=== PATIENT | male | born 1990 | race Caucasian/White ===

== ENCOUNTER 2017-05-30 21:00 | Emergency (ER) | payer OTHER ==
[2017-05-30 21:13] VITALS: BP 143/93
[2017-05-30] MEDS ORDERED: Lidocaine 1% 50 ML MDV INJECT ONE (21:27)
--- NOTE | 2017-05-30 21:43 | EDM.PDOC ---
ED HPI GENERAL MEDICAL PROBLEM - General Chief Complaint: Laceration Stated Complaint: CUT RIGHT MIDDLE FINGER Time Seen by Provider: 05/30/17 21:25 Source of Information: Reports: Patient History Limitations: Reports: No Limitations - History of Present Illness INITIAL COMMENTS - FREE TEXT/NARRATIVE: 27-year-old male presents for evaluation and treatment of a laceration. Patient reports that he was pumping up a bicycle with a pump. He states that the pump came undone and he did not realizes he then jammed the edge of the pump into his finger causing a laceration. Occurred about 1 hour prior to arrival. Laceration is located near the right hand third finger dorsal DIP joint. He reports some numbness and tingling. Last tetanus was about 3 years ago. Patient is right-handed. Onset: Today Location: Reports: Upper Extremity, Right Right 3-Middle finger Pain Score (Numeric/FACES): 1 - Related Data Allergies Allergy/AdvReac Type Severity Reaction Status Date / Time No Known Allergies Allergy Verified 09/10/15 18:06 Home Meds: Home Meds Acetaminophen/oxyCODONE [Percocet 325-5 MG] 1 tab PO Q6H PRN #15 tablet [Rx] Cephalexin 500 mg PO TID #10 capsule 05/30/17 [Rx] Past Medical History - Past Health History Medical/Surgical History: Denies Medical/Surgical History Respiratory History: Reports: Asthma Musculoskeletal History: Reports: Fracture Neurological History: Reports: Concussion Social & Family History - Family History Family Medical History: Noncontributory - Tobacco Use Smoking Status *Q: Never Smoker - Caffeine Use Caffeine Use: Reports: Coffee, Energy Drinks, Soda, Tea - Recreational Drug Use Recreational Drug Use: No ED ROS GENERAL - Review of Systems Review Of Systems: See Below Musculoskeletal: Reports: Hand Pain (pain with ROM) Skin: Reports: Wound (right hand over DIP joint 3 finger) Neurological: Reports: Numbness (right hand 3rd finger), Tingling (right hand 3rd finger) ED EXAM, SKIN/RASH Exam: See Below Exam Limited By: No Limitations General Appearance: Alert, WD/WN, No Apparent Distress, Anxious Eye Exam: Bilateral Eye: Conjunctival Injection Respiratory/Chest: No Respiratory Distress Cardiovascular: Normal Peripheral Pulses, Regular Rate, Rhythm Peripheral Pulses: 2+: Radial (L), Radial (R) Extremities: Normal Range of Motion (able to make a fist, flex, extend, adduct and abduct right hand 3rd finger both with and without resistance) Neurological: Alert, Oriented, Normal Cognition Psychiatric: Normal Affect, Normal Mood Skin: Warm, Dry, Other (3cm laceration to the right hand 3rd finger over the PIP joint dorsal lateral side) Location, Skin: Upper Extremity, Right ED SKIN PROCEDURES - Laceration/Wound Repair Right Distal Dorsal Finger Lac/Wound length In cm: 3 Appearance: Subcutaneous, Irregular, Mildly Contaminated Distal NVT: Neuro & Vascular Intact, No Tendon Injury Anesthetic Type: Local Local Anesthesia - Lidocaine (Xylocaine): 1% Plain Local Anesthetic Volume: 2cc Skin Prep: Saline, Sterile Drape, Other (kerraclens; soaked in sterile saline and kerraclens then irrigated with about 400cc of sterile saline) Exploration/Debridement/Repair: Wound Explored, Other (bone fragement found) Closed with: Sutures Suture Size: 4-0 # of Sutures: 9 Suture Type: Silk, Interrupted, Simple Sterile Dressing Applied: Nurse Tetanus Status Addressed: Yes Complications: No Course - Vital Signs Last Recorded V/S: Last Vital Signs Temp 35.8 C 05/30/17 21:12 Pulse 69 05/30/17 21:12 Resp 29 H 05/30/17 21:12 BP 143/93 H 05/30/17 21:12 Pulse Ox 99 05/30/17 21:12 - Orders/Labs/Meds Orders: Active Orders 24 hr Category Date Time Status Peripheral IV Care [RC] . DIRECTED Care 05/30/17 22:53 Ordered Fingers Third Digit Rt F7 [CR] Stat Exams 05/30/17 22:08 Taken Sodium Chloride 0.9% [Saline Flush] Med 05/30/17 22:53 Ordered 10 ml FLUSH ASDIRECTED PRN ceFAZolin [Ancef] 1 gm Med 05/30/17 22:53 Ordered Premix Bag 1 bag IV ONETIME Peripheral IV Insertion Adult [OM.PC] Routine Oth 05/30/17 22:53 Ordered Medication Orders Cefazolin Sodium/Dextrose 1 gm (/ Premix) 50 mls @ 100 mls/hr IV ONETIME ONE Stop: 05/30/17 23:22 Sodium Chloride (Saline Flush) 10 ml FLUSH ASDIRECTED PRN PRN Reason: Keep Vein Open Meds: Medications Generic Name Dose Route Start Last Admin Trade Name Freq PRN Reason Stop Dose Admin Cefazolin Sodium/Dextrose 1 gm 50 mls @ 100 mls/hr 05/30/17 22:53 / Premix IV 05/30/17 23:22 ONETIME ONE Sodium Chloride 10 ml 05/30/17 22:53 Saline Flush FLUSH ASDIRECTED PRN Keep Vein Open Discontinued Medications Generic Name Dose Route Start Last Admin Trade Name Freq PRN Reason Stop Dose Admin Hydromorphone HCl 0.5 mg 05/30/17 23:06 Dilaudid IVPUSH 05/30/17 23:07 ONETIME ONE Lidocaine HCl 50 ml 05/30/17 21:27 05/30/17 21:35 Xylocaine 1% INJECT 05/30/17 21:28 50 ml ONETIME ONE Administration - Radiology Interpretation Free Text/Narrative:: xray of the right hand 3rd finger shows a small chip fracture off the middle distal phalnex - Re-Assessments/Exams Free Text/Narrative Re-Assessment/Exam: 05/30/17 22:12 While suturing, I encountered a hard substance. Decided to suspend suturing and obtain an xray to rule out fracture. 05/30/17 22:56 Reviewed xray results with the patient. 05/30/17 23:[address] Jerman Constantino, content engineer for hand surgery at [facility], recommended IV antibiotics, thorough irrigation and oral antibiotics. Did not feel the need for a washout. Suturing was resumed. I placed an additional 4 sutures in the laceration for 9 sutures total. Patient to recieve 1 gram IV ancef. Will place on cephalexin outpatient. Will discharge home. Discharge instructions as documented. Departure - Departure Time of Disposition: 23:42 Disposition: Home, Self-Care 01 Condition: Fair Clinical Impression: Laceration, Fracture of finger, middle phalanx, right, open - Discharge Information Prescriptions: Acetaminophen/oxyCODONE [Percocet 325-5 MG] 1 tab PO Q6H PRN #15 tablet PRN Reason: Pain Cephalexin 500 mg PO TID #10 capsule Referrals: PCP,None [Primary Care Provider] - Marquis Perales DO [Physician] - Forms: ED Department Discharge Additional Instructions: You were given medication in the ER that can affect your ability to drive and operate machinery. Do not drive or operate machinery within 12 hours of taking prescription narcotic pain medication. Wash the wound with gentle soap and water twice a day. Keep the wound covered. Wear splint at all times. Percocet 1 tab PO every 4-6 hours prn pain. Do not drive or operate machinery within 12 hours of taking the percocet. Percocet can be habit forming, I recommend you take as few of these as needed to control your pain. Take antibiotics as prescribed. 1 tab PO tid x 10 days. Recommend you take these with food. May start this antibiotic tomorrow. Monitor for signs of infection such as increased swelling, pus or erythema. Present clinic or the ER should these develop. Follow up with orthopedics this week. May see Dr. Perales at [facility]. Clear [phone] Pearles. Please return to the ER if symptoms change or worsen. - My Orders Last 24 Hours: My Active Orders 05/30/17 22:08 Fingers Third Digit Rt F7 [CR] Stat 05/30/17 22:53 Peripheral IV Care [RC] . DIRECTED Sodium Chloride 0.9% [Saline Flush] 10 ml FLUSH ASDIRECTED PRN ceFAZolin [Ancef] 1 gm Premix Bag 1 bag IV ONETIME Peripheral IV Insertion Adult [OM.PC] Routine - Assessment/Plan Last 24 Hours: My Active Orders 05/30/17 22:08 Fingers Third Digit Rt F7 [CR] Stat 05/30/17 22:53 Peripheral IV Care [RC] . DIRECTED Sodium Chloride 0.9% [Saline Flush] 10 ml FLUSH ASDIRECTED PRN ceFAZolin [Ancef] 1 gm Premix Bag 1 bag IV ONETIME Peripheral IV Insertion Adult [OM.PC] Routine
[2017-05-30] MEDS ORDERED: ceFAZolin 1 GM in Premix Bag 1 BAG IV ONE (22:53)
[2017-05-30] MEDS ORDERED: Sodium Chloride 0.9% 10 ML Syringe FLUSH PRN (22:53)
[2017-05-30] MEDS ORDERED: Acetaminophen/oxyCODONE 325-5 MG Tab PO ONE (22:57)
[2017-05-30] MEDS ORDERED: HYDROmorphone 0.5 MG/0.5 ML Syringe IVPUSH ONE (23:06)
[2017-05-30] MEDS ORDERED: HYDROmorphone 0.5 MG/0.5 ML Syringe ONE (23:08)
--- NOTE | 2017-05-31 11:49 | CR ---
Right third finger: Four views centered to the right third finger were obtained. Soft tissue injury is identified. Opacities are seen within the soft tissues presumably due to foreign body. No acute fracture, dislocation or other bony abnormality is seen. Impression: 1. Soft tissue injury. Presumed soft tissue foreign bodies. 2. No acute bony abnormality is seen. Diagnostic code #3
== END 2017-05-31 | disposition home or self-care (01) ==
LOC: JD.ED 21:00
DX: S62.632B Displaced fracture of distal phalanx of right middle finger, initial encounter for open fracture (principal); J45.909 Unspecified asthma, uncomplicated; W23.0XXA Caught, crushed, jammed, or pinched between moving objects, initial encounter
CPT/HCPCS: 12002; 73140; 96365; 96375; 99283; J0690; J1170; J7050; 99284-25

== ENCOUNTER 2019-01-04 21:50 | Emergency (ER) | payer OTHER ==
[2019-01-04 22:21] VITALS: BP 137/94
[2019-01-04] MEDS ORDERED: Ondansetron 4 MG/2 ML SDV IVPUSH ONE (22:33)
[2019-01-04] MEDS ORDERED: Sodium Chloride 0.9% 10 ML Syringe FLUSH PRN (22:33)
[2019-01-04] MEDS ORDERED: Sodium Chloride 0.9% 1,000 ML IV STA (22:33)
--- NOTE | 2019-01-04 22:42 | EDM.PDOC ---
ED HPI GENERAL MEDICAL PROBLEM - General Chief Complaint: Neurological Problem Stated Complaint: DIZZY, SOB POSSIBLE FOOD POSIONING Time Seen by Provider: 01/04/19 22:23 Source of Information: Reports: Patient History Limitations: Reports: No Limitations - History of Present Illness INITIAL COMMENTS - FREE TEXT/NARRATIVE: The patient presents with dizziness, stomach cramps and shortness of breath. He says earlier today at 11am he had some soup and it tasted sour. He did not think much of it until tonight. He had some dizziness when moving his head. He had stomach cramps and the urge to have a BM but no BM or diarrhea. He may have a little nausea but no vomiting. He had a headache but he took motrin and that is better. He has no fever, chills, cough, congestion, or runny nose. He had some dysuria. He has no medical problems. He has no chest pain. He did notice when he went up stairs tonight he had some shortness of breath. Onset: Gradual Duration: Hour(s): Location: Reports: Abdomen Quality: Reports: Ache (cramping) Severity: Mild Improves with: Reports: None Worsens with: Reports: None Associated Symptoms: Reports: Headaches, Nausea/Vomiting, Shortness of Breath. Denies: Chest Pain, Cough, Fever/Chills Headache Pain Score (Numeric/FACES): 3 - Related Data Allergies Allergy/AdvReac Type Severity Reaction Status Date / Time No Known Allergies Allergy Verified 09/10/15 18:06 Home Meds: Home Meds Ondansetron [Zofran ODT] 4 mg PO Q6H PRN #20 tab.dis 01/05/19 [Rx] Past Medical History - Past Health History Medical/Surgical History: Denies Medical/Surgical History Respiratory History: Reports: Asthma Musculoskeletal History: Reports: Fracture Neurological History: Reports: Concussion Social & Family History - Family History Family Medical History: Noncontributory - Tobacco Use Smoking Status *Q: Never Smoker - Caffeine Use Caffeine Use: Reports: Coffee, Energy Drinks - Recreational Drug Use Recreational Drug Use: No ED ROS GENERAL - Review of Systems Review Of Systems: See Below Constitutional: Reports: No Symptoms HEENT: Reports: No Symptoms Respiratory: Reports: Shortness of Breath. Denies: Cough Cardiovascular: Reports: No Symptoms Endocrine: Reports: No Symptoms GI/Abdominal: Reports: Abdominal Pain, Nausea. Denies: Diarrhea, Vomiting : Reports: Dysuria Musculoskeletal: Reports: No Symptoms Skin: Reports: No Symptoms ED EXAM, NEURO - Physical Exam Exam: See Below Exam Limited By: No Limitations General Appearance: Alert, No Apparent Distress Ears: Normal External Exam Nose: Normal Inspection Head Exam: Atraumatic, Normocephalic Neck: Normal Inspection Respiratory/Chest: No Respiratory Distress, Lungs Clear, Normal Breath Sounds Cardiovascular: Regular Rate, Rhythm, No Edema, No Murmur GI/Abdominal: Soft, Non-Tender, No Organomegaly, No Mass Neurological: Alert, No Motor/Sensory Deficits, Oriented x 3 Course - Vital Signs Last Recorded V/S: Last Vital Signs Temp 98.6 F 01/04/19 22: Pulse 63 01/04/19 22:19 Resp 20 01/04/19 22:19 BP 137/94 H 01/04/19 22:19 Pulse Ox 98 01/04/19 22:19 - Orders/Labs/Meds Orders: Active Orders 24 hr Category Date Time Status Peripheral IV Care [RC] . DIRECTED Care 01/04/19 22:33 Active Sodium Chloride 0.9% [Saline Flush] Med 01/04/19 22:33 Active 10 ml FLUSH ASDIRECTED PRN ED Antiemetic Medication Reflex [OM.PC] Stat Oth 01/04/19 22:33 Ordered Peripheral IV Insertion Adult [OM.PC] Stat Oth 01/04/19 22:33 Ordered Medication Orders Sodium Chloride (Saline Flush) 10 ml FLUSH ASDIRECTED PRN PRN Reason: Keep Vein Open Last Admin: 01/04/19 23:15 Dose: 10 ml Labs: Laboratory Tests 01/04/19 01/04/19 01/04/19 Range/Units 23:20 23:20 23:28 WBC 8.64 (4.23-9.07) K/mm3 RBC 5.17 (4.63-6.08) M/mm3 Hgb 15.3 (13.7-17.5) gm/L Hct 43.2 (40.1-51.0) % MCV 83.6 (79.0-92.2) fl MCH 29.6 (25.7-32.2) pg MCHC 35.4 (32.2-35.5) g/dl RDW Std Deviation 37.4 (35.1-43.9) fL Plt Count 220 (163-337) K/mm3 MPV 10.6 (9.4-12.3) fl Neut % (Auto) 51.4 (34.0-67.9) % Lymph % (Auto) 34.6 (21.8-53.1) % Chaves % (Auto) 7.3 (5.3-12.2) % Eos % (Auto) 5.9 (0.8-7.0) Baso % (Auto) 0.6 (0.1-1.2) % Neut # (Auto) 4.44 (1.78-5.38) K/mm3 Lymph # (Auto) 2.99 (1.32-3.57) K/mm3 Chaves # (Auto) 0.63 (0.30-0.82) K/mm3 Eos # (Auto) 0.51 (0.04-0.54) K/mm3 Baso # (Auto) 0.05 (0.01-0.08) K/mm3 Sodium 140 (136-145) mEq/L Potassium 4.0 (3.5-5.1) mEq/L Chloride 104 (98-107) mEq/L Carbon Dioxide 28 (21-32) mEq/L Anion Gap 12.0 (5-15) BUN 20 H (7-18) mg/dL Creatinine 1.3 (0.7-1.3) mg/dL Est Cr Clr Drug Dosing 92.03 mL/min Estimated GFR (MDRD) > 60 (>60) mL/min BUN/Creatinine Ratio 15.4 (14-18) Glucose 102 (74-106) mg/dL Calcium 9.2 (8.5-10.1) mg/dL Total Bilirubin 0.4 (0.2-1.0) mg/dL AST 14 L (15-37) U/L ALT 37 (16-63) U/L Alkaline Phosphatase 86 (46-116) U/L Total Protein 7.2 (6.4-8.2) g/dl Albumin 3.9 (3.4-5.0) g/dl Globulin 3.3 gm/dL Albumin/Globulin Ratio 1.2 (1-2) Lipase 151 (73-393) U/L Urine Color Yellow (Yellow) Urine Appearance Clear (Clear) Urine pH 6.0 (5.0-8.0) Ur Specific Hunters 1.025 (1.005-1.030) Urine Protein Negative (Negative) Urine Glucose (UA) Negative (Negative) Urine Ketones Trace H (Negative) Urine Occult Blood Negative (Negative) Urine Nitrite Negative (Negative) Urine Bilirubin Negative (Negative) Urine Urobilinogen 0.2 (0.2-1.0) Ur Leukocyte Esterase Negative (Negative) Urine RBC 0-5 (0-5) /hpf Urine WBC 0-5 (0-5) /hpf Ur Epithelial Cells 0-5 (0-5) /hpf Urine Bacteria Not seen (FEW) /hpf Urine Mucus Not seen (FEW) /hpf Meds: Medications Generic Name Dose Route Start Last Admin Trade Name Freq PRN Reason Stop Dose Admin Sodium Chloride 10 ml 01/04/19 22:33 01/04/19 23:15 Saline Flush FLUSH 10 ml ASDIRECTED PRN Administration Keep Vein Open Discontinued Medications Generic Name Dose Route Start Last Admin Trade Name Freq PRN Reason Stop Dose Admin Sodium Chloride 1,000 mls @ 1,000 mls/hr 01/04/19 22:33 01/04/19 23:18 Normal Saline IV 01/04/19 23:32 1,000 mls/hr .BOLUS STA Administration Ondansetron HCl 4 mg 01/04/19 22:33 01/04/19 23:18 Zofran IVPUSH 01/04/19 22:34 4 mg ONETIME ONE Administration - Re-Assessments/Exams Free Text/Narrative Re-Assessment/Exam: 01/04/19 22:43 I ordered an IV NS 1L bolus, zofran 4mg IV, labs and UA. 01/05/19 00:12 His CBC and CMP look good. His UA looks good. He feels better. I will discharge him home with some zofran to use as needed. Departure - Departure Time of Disposition: 00:15 Disposition: Home, Self-Care 01 Condition: Good Clinical Impression: Dizziness, Stomach cramps - Discharge Information *PRESCRIPTION DRUG MONITORING PROGRAM REVIEWED*: Not Applicable *COPY OF PRESCRIPTION DRUG MONITORING REPORT IN PATIENT ROXY: Not Applicable Prescriptions: Ondansetron [Zofran ODT] 4 mg PO Q6H PRN #20 tab.dis PRN Reason: Nausea\vomiting Referrals: PCP,None [Primary Care Provider] - Forms: ED Department Discharge Additional Instructions: Drink plenty of fluids. If you develop nausea and vomiting, use the zofran every 6 hours as needed for nausea and vomiting. Please return if you are worse such as more pain or if you cannot keep anything down even when taking the zofran. - My Orders Last 24 Hours: My Active Orders 01/04/19 22:33 Peripheral IV Care [RC] . DIRECTED Sodium Chloride 0.9% [Saline Flush] 10 ml FLUSH ASDIRECTED PRN ED Antiemetic Medication Reflex [OM.PC] Stat Peripheral IV Insertion Adult [OM.PC] Stat - Assessment/Plan Last 24 Hours: My Active Orders 01/04/19 22:33 Peripheral IV Care [RC] . DIRECTED Sodium Chloride 0.9% [Saline Flush] 10 ml FLUSH ASDIRECTED PRN ED Antiemetic Medication Reflex [OM.PC] Stat Peripheral IV Insertion Adult [OM.PC] Stat
== END 2019-01-05 00:20 | disposition home or self-care (01) ==
LOC: JD.ED 21:50
DX: R42 Dizziness and giddiness (principal); R10.9 Unspecified abdominal pain; R06.02 Shortness of breath; R11.0 Nausea
CPT/HCPCS: 36415; 80053; 81001; 83690; 85025; 96361; 96374; 99284; J2405; J7040

== ENCOUNTER 2020-01-29 19:28 | Emergency (ER) | payer OTHER ==
[2020-01-29 19:46] VITALS: BP 157/101; PULSE 69
[2020-01-29] MEDS ORDERED: Lactated Ringers 1,000 ML IV SCH (20:15)
--- NOTE | 2020-01-29 20:18 | EDM.PDOC ---
ED HPI GENERAL MEDICAL PROBLEM - General Chief Complaint: Upper Extremity Injury/Pain Stated Complaint: RIGHT ARM PAIN/HAND NUMB Time Seen by Provider: 01/29/20 19:49 Source of Information: Reports: Patient History Limitations: Reports: No Limitations - History of Present Illness INITIAL COMMENTS - FREE TEXT/NARRATIVE: Mr. Pickard is a very pleasant 29-year-old man with a past medical history significant for suspected asthma as a child, and likely concussions when he used to play football, who now presents to the ED stating that he developed right elbow discomfort 2 days ago, , 01/27/2020. He does not recall suffering any injury to the elbow or arm. The discomfort was likely made worse with movement. He states that he then developed a bifrontal headache this afternoon. He describes the headache as sharp in character, and on occasion the pain would radiate to the right side of his neck. He still has a headache, although he states that it is better now than it was earlier. At no time did he have visual changes, such as blurry vision, wavy lines, or flashes of light. He did have photophobia earlier, but not now. No phonophobia. No nausea or vomiting. No prior headache like he had earlier, although he has had headaches that are similar to his current milder headache. At around the same time that the patient developed the headache, he also developed entire right upper extremity pain, tingling, and numbness. Around 19: 25 this evening, the patient noticed that his right hand had a purplish appearance, which resolved after about 10 minutes, along with the right upper extremity pain, however, his right upper extremity still feels tingly and numb. No prior similar symptoms. The patient states that he developed a nonproductive cough, rhinorrhea, sore throat, mild dyspnea, and possible slight wheezing on 01/25/2020, although his symptoms have since improved markedly. Otherwise, the patient denies recent fever, chills, chest pain, palpitations, nausea, vomiting, constipation, diarrhea, abdominal pain, urinary symptoms, recent weight gain or weight loss, recent bloody bowel movements or black bowel movements, or rashes. During my evaluation, the patient stated that his lower extremities started to feel warm and sweaty. Here in the ED, the patient's initial BP was found to be mildly elevated at 157/ 101, otherwise, he is hemodynamically stable, afebrile, saturating 99% on room air. The patient does not have a PCP. He received an influenza vaccine this season. Right Arm Pain Score (Numeric/FACES): 5 - Related Data Allergies Allergy/AdvReac Type Severity Reaction Status Date / Time No Known Allergies Allergy Verified 01/29/20 19:46 Home Meds: Home Meds . [No Known Home Meds] 01/29/20 [History] Past Medical History Respiratory History: Reports: Asthma (suspected, as a child) Musculoskeletal History: Reports: Fracture (right wrist as a child) Neurological History: Reports: Concussion (likely) - Past Surgical History HEENT Surgical History: Reports: Oral Surgery (wisdom teeth extraction) Social & Family History - Family History Family Medical History: Noncontributory - Tobacco Use Smoking Status *Q: Former Smoker Years of Tobacco use: 4 Packs/Tins Daily: 2 Month/Year Tobacco Last Used: Quit 2014 - Caffeine Use Caffeine Use: Reports: Coffee - Alcohol Use Alcohol Use History: Yes Alcohol Use Frequency: Socially (occasionally to excess) - Recreational Drug Use Recreational Drug Use: Yes Drug Use in Last 12 Months: No Recreational Drug Type: Reports: Marijuana/Hashish (last smoked 2007) - Living Situation & Occupation Living situation: Reports: , with Spouse, with Family (3 kids) Occupation: Employed ([employer]) Review of Systems - Review of Systems Review Of Systems: Comprehensive ROS is negative, except as noted in HPI. ED EXAM, GENERAL - Physical Exam Exam: See Below Exam Limited By: No Limitations General Appearance: Alert, WD/WN, No Apparent Distress Eye Exam: Bilateral Eye: EOMI, Normal Inspection, PERRL Ears: Normal External Exam, Normal Canal, Hearing Grossly Normal, Normal TMs Nose: Normal Inspection, Normal Mucosa, No Blood Throat/Mouth: Normal Inspection, Normal Lips, Normal Teeth, Normal Gums, Normal Oropharynx, Normal Voice, No Airway Compromise Head: Atraumatic, Normocephalic Neck: Normal Inspection, Supple, Non-Tender, Full Range of Motion. No: Carotid Bruit, Lymphadenopathy (L), Lymphadenopathy (R) Respiratory/Chest: No Respiratory Distress, Lungs Clear, Normal Breath Sounds, No Accessory Muscle Use Cardiovascular: Normal Peripheral Pulses, Regular Rate, Rhythm, No Edema, No Gallop, No JVD, No Murmur, No Rub Peripheral Pulses: 4+: Radial (L), Radial (R), Dorsalis Pedis (L), Dorsalis Pedis (R) GI/Abdominal: Normal Bowel Sounds, Soft, No Organomegaly, No Distention, No Abnormal Bruit, No Mass, Tender (RUQ only, but Cruz sign absent. Nontender elsewhere.) (Male) Exam: Deferred Rectal (Males) Exam: Deferred Back Exam: Normal Inspection, Full Range of Motion, NT Extremities: Normal Range of Motion, No Pedal Edema, Normal Capillary Refill, Other (Bilateral lower extremities are diaphoretic) Neurological: Alert, Oriented, CN II-XII Intact, Normal Cognition, No Motor/ Sensory Deficits (SLIGHTLY weaker handgrip on the right than left - pt is right- handed) Psychiatric: Normal Affect Skin Exam: Warm, Intact, Normal Color, No Rash EKG INTERPRETATION EKG Date: 01/29/20 Time: 20:20 Rhythm: NSR Rate (Beats/Min): 72 [place]: Normal P-Wave: Present QRS: Normal ST-T: Normal QT: Normal Comparison: NA - No Prior EKG Course - Vital Signs Last Recorded V/S: Last Vital Signs Temp 37.4 C 01/29/20 19:43 Pulse 69 01/29/20 19:43 Resp 16 01/29/20 19:43 BP 157/101 H 01/29/20 19:43 Pulse Ox 99 01/29/20 19:43 - Orders/Labs/Meds Orders: Active Orders 24 hr Category Date Time Status EKG Documentation Completion [RC] STAT Care 01/29/20 20:08 Active Ang Abdomen Aorta w Bi Runoff [CT] Routine Exams 01/29/20 20:42 Taken Ang Chest [CT] Stat Exams 01/29/20 20:10 Taken Ang Head [CT] Stat Exams 01/29/20 20:27 Taken CTA Neck W & W/O Contrast [Ang Neck] [CT] Stat Exams 01/29/20 20:27 Taken CORONAVIRUS (COVID-19) PCR [MREF] Stat Lab 01/29/20 22:50 Received Isolation [COMM] Routine Oth 01/29/20 21:44 Ordered Labs: Laboratory Tests 01/29/20 01/29/20 01/29/20 Range/Units 20:15 20:15 20:15 WBC 7.32 (4.23-9.07) K/mm3 RBC 5.03 (4.63-6.08) M/mm3 Hgb 14.9 (13.7-17.5) gm/dl Hct 42.2 (40.1-51.0) % MCV 83.9 (79.0-92.2) fl MCH 29.6 (25.7-32.2) pg MCHC 35.3 (32.2-35.5) g/dl RDW Std Deviation 36.7 (35.1-43.9) fL Plt Count 227 (163-337) K/mm3 MPV 10.6 (9.4-12.3) fl Neutrophils % (Manual) 46 (40-60) % Band Neutrophils % 0 (0-10) % Lymphocytes % (Manual) 44 H (20-40) % Atypical Lymphs % 2 % Monocytes % (Manual) 4 (2-10) % Eosinophils % (Manual) 3 (0.8-7.0) % Basophils % (Manual) 1 (0.2-1.2) Platelet Estimate Adequate RBC Morph Comment Normal PT (9.7-12.0) SECONDS INR APTT (22-31) SECONDS D-Dimer, Quantitative (0.19-0.50) mg/L Sodium 141 (136-145) mEq/L Potassium 3.9 (3.5-5.1) mEq/L Chloride 104 (98-107) mEq/L Carbon Dioxide 27 (21-32) mEq/L Anion Gap 13.9 (5-15) BUN 16 (7-18) mg/dL Creatinine 1.2 (0.7-1.3) mg/dL Est Cr Clr Drug Dosing 98.80 mL/min Estimated GFR (MDRD) > 60 (>60) mL/min BUN/Creatinine Ratio 13.3 L (14-18) Glucose 110 H (74-106) mg/dL Lactic Acid 1.4 (0.4-2.0) mmol/L Calcium 9.1 (8.5-10.1) mg/dL Magnesium 1.6 L (1.8-2.4) mg/dl Total Bilirubin 0.5 (0.2-1.0) mg/dL AST 16 (15-37) U/L ALT 42 (16-63) U/L Alkaline Phosphatase 95 (46-116) U/L Troponin I < 0.017 (0.00-0.056) ng/mL C-Reactive Protein 0.9 (<1.0) mg/dL Total Protein 7.2 (6.4-8.2) g/dl Albumin 3.9 (3.4-5.0) g/dl Globulin 3.3 gm/dL Albumin/Globulin Ratio 1.2 (1-2) Lipase 84 (73-393) U/L Urine Color (Yellow) Urine Appearance (Clear) Urine pH (5.0-8.0) Ur Specific [place] (1.005-1.030) Urine Protein (Negative) Urine Glucose (UA) (Negative) Urine Ketones (Negative) Urine Occult Blood (Negative) Urine Nitrite (Negative) Urine Bilirubin (Negative) Urine Urobilinogen (0.2-1.0) Ur Leukocyte Esterase (Negative) Urine RBC (0-5) /hpf Urine WBC (0-5) /hpf Ur Squamous Epith Cells (0-5) /hpf Urine Bacteria (FEW) /hpf Urine Mucus (FEW) /hpf 01/29/20 01/29/20 Range/Units 20:15 20:36 WBC (4.23-9.07) K/mm3 RBC (4.63-6.08) M/mm3 Hgb (13.7-17.5) gm/dl Hct (40.1-51.0) % MCV (79.0-92.2) fl MCH (25.7-32.2) pg MCHC (32.2-35.5) g/dl RDW Std Deviation (35.1-43.9) fL Plt Count (163-337) K/mm3 MPV (9.4-12.3) fl Neutrophils % (Manual) (40-60) % Band Neutrophils % (0-10) % Lymphocytes % (Manual) (20-40) % Atypical Lymphs % % Monocytes % (Manual) (2-10) % Eosinophils % (Manual) (0.8-7.0) % Basophils % (Manual) (0.2-1.2) Platelet Estimate RBC Morph Comment PT 10.5 (9.7-12.0) SECONDS INR 0.96 APTT 26 (22-31) SECONDS D-Dimer, Quantitative < 0.19 L (0.19-0.50) mg/L Sodium (136-145) mEq/L Potassium (3.5-5.1) mEq/L Chloride (98-107) mEq/L Carbon Dioxide (21-32) mEq/L Anion Gap (5-15) BUN (7-18) mg/dL Creatinine (0.7-1.3) mg/dL Est Cr Clr Drug Dosing mL/min Estimated GFR (MDRD) (>60) mL/min BUN/Creatinine Ratio (14-18) Glucose (74-106) mg/dL Lactic Acid (0.4-2.0) mmol/L Calcium (8.5-10.1) mg/dL Magnesium (1.8-2.4) mg/dl Total Bilirubin (0.2-1.0) mg/dL AST (15-37) U/L ALT (16-63) U/L Alkaline Phosphatase (46-116) U/L Troponin I (0.00-0.056) ng/mL C-Reactive Protein (<1.0) mg/dL Total Protein (6.4-8.2) g/dl Albumin (3.4-5.0) g/dl Globulin gm/dL Albumin/Globulin Ratio (1-2) Lipase (73-393) U/L Urine Color Light yellow (Yellow) Urine Appearance Clear (Clear) Urine pH 7.0 (5.0-8.0) Ur Specific [place] 1.025 (1.005-1.030) Urine Protein Negative (Negative) Urine Glucose (UA) Negative (Negative) Urine Ketones 1+ H (Negative) Urine Occult Blood Negative (Negative) Urine Nitrite Negative (Negative) Urine Bilirubin Negative (Negative) Urine Urobilinogen 0.2 (0.2-1.0) Ur Leukocyte Esterase Negative (Negative) Urine RBC 0-5 (0-5) /hpf Urine WBC 0-5 (0-5) /hpf Ur Squamous Epith Cells 0-5 (0-5) /hpf Urine Bacteria Occasional (FEW) /hpf Urine Mucus Few (FEW) /hpf Meds: Medications Discontinued Medications Generic Name Dose Route Start Last Admin Trade Name Freq PRN Reason Stop Dose Admin Lactated Ringer's 1,000 mls @ 125 mls/hr 01/29/20 20:15 01/29/20 20:21 Ringers, Lactated IV 125 mls/hr ASDIRECTED BETHANY Administration Sodium Chloride 100 mls @ 80 mls/hr 01/29/20 20:45 01/29/20 21:09 Normal Saline IV 80 mls/hr ASDIRECTED BETHANY Administration Magnesium Sulfate 2 gm/ Premix 50 mls @ 50 mls/hr 01/29/20 21:05 01/29/20 21: 37 IV 01/29/20 22:04 50 mls/hr ONETIME ONE Administration Iopamidol 200 ml 01/29/20 20:37 01/29/20 21:09 Isovue-370 (76%) IVPUSH 01/29/20 20:38 200 ml ONETIME ONE Administration Iopamidol 50 ml 01/29/20 20:37 01/29/20 21:09 Isovue-370 (76%) IUTERINE 01/29/20 20:38 50 ml ONETIME ONE Administration Sodium Chloride 10 ml 01/29/20 20:37 01/29/20 21:09 Saline Flush FLUSH 10 ml ONETIME PRN Administration KEEP VEIN OPEN - Re-Assessments/Exams Free Text/Narrative Re-Assessment/Exam: 01/29/20 20:13 With symptoms of upper extremity pain, tingling, and numbness, along with a headache, his presentation is most consistent with a migraine, however, the patient also mentioned that his right hand had a purple appearance for about 10 minutes earlier tonight. This changes his presentation from a neurologic etiology to a vascular etiology. 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 The patient noted that his lower extremities can to feel warm and sweaty while I was evaluating him, and indeed, his lower extremities are diaphoretic. While the patient denies chest pain, I am concerned that he may be showering some blood clots, and a dissection has to be considered. I have ordered a work-up that includes blood work, a urinalysis ( not to look for a UTI, rather, to look for abnormal sediment or casts), and ECG to look for dysrhythmias, and a CT aortogram with runoff to the lower extremities. 01/29/20 20:29 After checking with the underwriting technician, I have added a CTA head & neck, which is done both with and without contrast. 01/29/20 21:05 The patient's CBC is unremarkable. His CMP is remarkable for a blood glucose slightly elevated at 110, with the remainder of his CMP being unremarkable. His magnesium level is depressed at 1.6. His lactic acid level is within normal limits at 1.4. His lipase is within normal limits at 84. His CRP is within normal limits at 0.9. His troponin is undetectably low. His D-dimer is undetectably low. The urinalysis, CT angiogram of the head and neck, and CT aortogram results are still pending. Based on the above, I have ordered a 2 g Mg-rider. 01/29/20 21:43 The patient's urinalysis is unremarkable. 01/29/20 21:46 With a history of a headache, nonproductive cough, rhinorrhea, sore throat, and dyspnea, while neither influenza nor COVID-19 would explain the patient's headache or upper extremity symptoms, I believe it would be prudent to check for both. 01/29/20 21:49 CT angiogram of the head with contrast as read by [facility] as: 1. Normal head CT. Consider follow-up evaluation of the brain with MRI if symptoms persist. 2. Patent intracranial vasculature. No evidence of hemodynamically significant stenosis, vascular occlusion or aneurysm. CT angiogram of the neck with contrast is read by [facility] as "No evidence of hemodynamically significant stenosis, vascular occlusion or dissection." 01/29/20 22:01 Notified by Karla WOODSON that the patient does not meet criterion to be tested for COVID-19. 01/29/20 22:13 CT angiogram of the chest with contrast is read by [facility] as "No acute intrathoracic pathology is identified. There is no evidence of acute aortic pathology or pulmonary embolism. There is mild dependent atelectasis, but no evidence of pneumonia. CT angiogram of the abdominal aorta and bilateral lower extremities with contrast is read by [facility] as "Normal CT appearance of the vasculature within the abdomen, pelvis and lower extremities. There is robust normal blood flow showing no atherosclerotic plaque or evidence of aneurysm or dissection. 01/29/20 22:18 I reevaluated the patient. He states that his headache and right upper extremity tingling/numbness has resolved. 01/29/20 22:49 The patient's influenza swab has returned negative. 01/29/20 22:53 Test results discussed with the patient. As above, other than mildly depressed magnesium level, his work-up today is entirely unremarkable. If it were not for his complaint of his right hand looking purple, I would say that he suffered a migraine which has subsequently resolved. With the information about the right hand being purplish, I cannot explain his symptoms. No dysrhythmias were found on his ECG, and his CRP was low, essentially ruling out vasculitis. His D-dimer was undetectably low, essentially ruling out any significant blood clot burden, and, as above, his CT angiograms showed no vascular blockages. As he is currently asymptomatic, I do not see an indication for hospitalization, therefore I will discharge him home. I instructed him to return to the ED if he redevelops symptoms or develops other, new symptoms. Departure - Departure Time of Disposition: 22:54 Disposition: Home, Self-Care 01 Condition: Good Clinical Impression: Headache, Paresthesia of right upper extremity, Viral URI with cough - Discharge Information *PRESCRIPTION DRUG MONITORING PROGRAM REVIEWED*: Not Applicable *COPY OF PRESCRIPTION DRUG MONITORING REPORT IN PATIENT ROXY: Not Applicable Referrals: PCP,None [Primary Care Provider] - Forms: ED Department Discharge Additional Instructions: You were seen in the emergency room for 2 days of right elbow pain, followed by a headache and right upper extremity tingling and numbness, with the right hand turning purplish, along with several days of a dry cough, runny nose, sore throat, and shortness of breath. Work-up in the ER included blood work, a urinalysis, an influenza swab, a COVID- [address] sw[address], [address] angiograms of your head, neck, and aorta, and an ECG. Your magnesium level was found to be slightly depressed at 1.6. You were given IV replacement magnesium in the ER. The remainder of your work-up was entirely unremarkable, and does not explain the cause of your symptoms. Were it not for your reporting of your right hand turning purple, your symptoms were most consistent with a migraine headache, which has since resolved. You will be notified of your COVID-19 results, likely tomorrow, Friday, 2021. Until then, you are to remain at home. If any other problems, including recurrence of your symptoms, or new symptoms, please do not hesitate to return to the ER. Sepsis Event Note - Evaluation Sepsis Screening Result: No Definite Risk - Focused Exam Vital Signs: Vital Signs Temp Pulse Resp BP Pulse Ox 01/29/20 19:43 37.4 C 69 16 157/101 H 99 Date Exam was Performed: 01/30/20 Time Exam was Performed: 00:42 - My Orders Last 24 Hours: My Active Orders 01/29/20 20:08 EKG Documentation Completion [RC] STAT 01/29/20 20:10 Ang Chest [CT] Stat 01/29/20 20:27 Ang Head [CT] Stat CTA Neck W & W/O Contrast [Ang Neck] [CT] Stat 01/29/20 20:42 Ang Abdomen Aorta w Bi Runoff [CT] Routine 01/29/20 21:44 Isolation [COMM] Routine 01/29/20 22:50 CORONAVIRUS (COVID-19) PCR [MREF] Stat - Assessment/Plan Last 24 Hours: My Active Orders 01/29/20 20:08 EKG Documentation Completion [RC] STAT 01/29/20 20:10 Ang Chest [CT] Stat 01/29/20 20:27 Ang Head [CT] Stat CTA Neck W & W/O Contrast [Ang Neck] [CT] Stat 01/29/20 20:42 Ang Abdomen Aorta w Bi Runoff [CT] Routine 01/29/20 21:44 Isolation [COMM] Routine 01/29/20 22:50 CORONAVIRUS (COVID-19) PCR [MREF] Stat
[2020-01-29] MEDS ORDERED: Iopamidol 755 Mg/ML 100 ML Bottle IVPUSH ONE (20:37)
[2020-01-29] MEDS ORDERED: Iopamidol 755 MG/ML 50 ML Bottle IUTERINE ONE (20:37)
[2020-01-29] MEDS ORDERED: Sodium Chloride 0.9% 10 ML Syringe FLUSH PRN (20:37)
[2020-01-29] MEDS ORDERED: Sodium Chloride 0.9% 100 ML IV SCH (20:45)
[2020-01-29] MEDS ORDERED: Magnesium Sulfate/Water 2 GM in Premix Bag 1 BAG IV ONE (21:05)
--- NOTE | 2020-01-31 07:38 | CT ---
CT chest Technique: Multiple axial sections through the chest were obtained. Intravenous contrast was utilized. Study was obtained during the arterial phase. Findings: Aorta appears unremarkable. Thoracic aorta is well opacified. No aneurysm or dissection is seen. Pulmonary arteries are also well opacified showing no filling defects pulmonary embolism. No pericardial thickening is seen. Hilar regions and mediastinum are within normal limits. No axillary adenopathy is identified. Lungs are clear with no acute parenchymal change. No pleural effusions are seen. Bone window settings were reviewed. No acute osseous finding is appreciated. Impression: 1. Nothing acute is seen on CT study of the chest. Diagnostic code #1 This report was dictated in MDT I agree with preliminary report from [email or web address], finalized on 01/29/20, 11:08 PM Central Time
--- NOTE | 2020-01-31 07:39 | CT ---
CT angiogram of neck Technique: Multiple axial sections through the neck were obtained. Intravenous contrast was utilized. Study performed as a CT angiogram study. Findings: Vertebral arteries are patent into the basilar artery. Common carotid arteries appear within normal limits. Both basilic arteries and subclavian arteries are patent. Carotid bulbs appear within normal limits. External carotid arteries and internal carotid arteries are within normal limits. Soft tissues of the neck appear within normal limits. No aneurysm or dissection is seen. Impression: 1. No abnormality is identified on CT angiogram study of the neck. No aneurysm or dissection is seen. Diagnostic code #1 This report was dictated in MDT I agree with preliminary report from [email or web address], finalized on 01/29/20, 10:39 PM Central Time
--- NOTE | 2020-01-31 07:39 | CT ---
CT angiogram of the brain Technique: Multiple axial sections through the brain were obtained. Intravenous contrast was utilized in the arterial phase. CT angiogram study was performed. Findings: Distal vertebral arteries, basilar artery and posterior cerebral arteries appear within normal limits. Distal common carotid arteries, middle cerebral arteries and anterior cerebral arteries appear within normal limits. No focal areas of dissection is seen. Incomplete right A1 branch is seen with vascular flow coming from the left carotid artery into the cerebral arteries on both sides. This finding is felt to be a normal variant. No discrete aneurysm is appreciated. Impression: 1. Incomplete right A1 branch believed to be a normal variant. 2. CT angiogram of the brain appears unremarkable. Diagnostic code #1 This report was dictated in MDT I agree with preliminary report from [facility], finalized on 01/29/20, 10:44 PM Central Time
--- NOTE | 2020-01-31 07:39 | CT ---
CT angiogram of abdomen and pelvis with bilateral lower extremity runoff Technique: Multiple axial sections were obtained from above the dome of the diaphragm inferiorly through the abdomen and pelvis and continued through both lower extremities. Intravenous contrast was utilized. Study was obtained during the arterial phase. Findings: Aortoiliac: Patent with no aneurysm or dissection. Renal arteries: 2 renal arteries noted on both sides. No stenosis or occlusion is seen. Celiac axis: Patent without aneurysm or dissection Superior mesenteric artery: Patent without aneurysm or dissection Inferior mesenteric artery: Patent without aneurysm or dissection. Right lower extremity: Common femoral artery: Patent with no aneurysm or dissection Superficial femoral artery: Patent without stenosis or dissection. Popliteal artery: Patent without aneurysm or dissection. Runoff vessels: 3 runoff vessels are noted into the ankle. Left lower extremity: Common femoral artery: Patent with no aneurysm or dissection Superficial femoral artery: Patent without stenosis or dissection. Popliteal artery: Patent without aneurysm or dissection. Runoff vessels: 3 runoff vessels are noted into the ankle. Other findings: Minimal bilateral inguinal hernias are noted. Liver and spleen show no focal parenchymal abnormality. Kidneys show symmetric contrast enhancement without hydronephrosis or mass. Pancreas is within normal limits. No retroperitoneal adenopathy is seen. No pelvic mass or adenopathy is seen. No soft tissue abnormalities are seen within the lower extremities. Impression: 1. No abnormality identified on aortoiliac angiogram with bilateral lower extremity runoff. No dissection, stenosis or occlusion is seen. 2. Small bilateral fat-containing inguinal hernias are noted. 3. Nothing acute is identified. Diagnostic code #2 This report was dictated in MDT I agree with preliminary report from [facility], finalized on 01/29/20, 11:05 PM Central Time
== END 2020-01-29 23:15 | disposition home or self-care (01) ==
LOC: JD.ED 19:28
DX: J06.9 Acute upper respiratory infection, unspecified (principal); R20.2 Paresthesia of skin; Z87.891 Personal history of nicotine dependence
CPT/HCPCS: 36415; 70496; 70498; 71275; 75635; 80053; 81001; 83605; 83690; 83735; 84484; 85007; 85027; 85379; 85610; 85730; 86140; 87804; 93005; 96361; 96365; 99284; J3475; J7050; J7120; Q9967; U0001; 93010

== ENCOUNTER 2020-05-18 09:54 | Day surgery (SDC) | payer OTHER ==
[2020-05-18] MEDS ORDERED: LORazepam 2 MG/ML SDV IVPUSH ONE (11:00)
[2020-05-18] MEDS ORDERED: Glucagon,Human Recombinant 1 MG Vial IVPUSH ONE (11:00)
--- NOTE | 2020-05-18 11:28 | EDM.PDOC ---
ED HPI GENERAL MEDICAL PROBLEM - General Chief Complaint: ENT Problem Stated Complaint: DYSPHAGIA Time Seen by Provider: 05/18/20 10:22 Source of Information: Reports: Patient, RN Notes Reviewed - History of Present Illness INITIAL COMMENTS - FREE TEXT/NARRATIVE: 30 yr old male with food bolus stuck in esophogus. This came on suddenly last evening when eating steak. Has not been able to swallow saliva. When he tries to drink water he has increased pain and than ends up vomiting. He has had food get stuck in the past but with time it has always gone down on its own. Throat Pain Score (Numeric/FACES): 8 - Related Data Allergies Allergy/AdvReac Type Severity Reaction Status Date / Time No Known Allergies Allergy Verified 05/18/20 10:02 Home Meds: Home Meds . [No Known Home Meds] 01/29/20 [History] Past Medical History - Past Health History Medical/Surgical History: Denies Medical/Surgical History Respiratory History: Reports: Asthma Musculoskeletal History: Reports: Fracture Neurological History: Reports: Concussion - Past Surgical History HEENT Surgical History: Reports: Oral Surgery Social & Family History - Family History Family Medical History: Noncontributory - Tobacco Use Smoking Status *Q: Former Smoker Used Tobacco, but Quit: Yes Month/Year Tobacco Last Used: 11/2013 - Caffeine Use Caffeine Use: Reports: Coffee, Energy Drinks, Soda, Tea - Alcohol Use Days Per Week of Alcohol Use: 3 Number of Drinks Per Day: 3 Total Drinks Per Week: 9 - Recreational Drug Use Recreational Drug Use: No - Living Situation & Occupation Living situation: Reports: , with Spouse, with Family (3 kids) Occupation: Employed ([employer] [place]) ED ROS GENERAL - Review of Systems Review Of Systems: See Below Constitutional: Denies: Fever, Chills HEENT: Denies: Throat Pain Respiratory: Denies: Shortness of Breath Cardiovascular: Reports: Chest Pain (pressure feeling when he tries to drink or swallow) GI/Abdominal: Reports: Nausea, Vomiting. Denies: Abdominal Pain Musculoskeletal: Denies: Back Pain Skin: Reports: No Symptoms Neurological: Reports: No Symptoms ED EXAM, GI/ABD - Physical Exam Exam: See Below General Appearance: Alert, Mild Distress Throat/Mouth: Normal Inspection Head: Atraumatic Neck: Supple Respiratory/Chest: No Respiratory Distress, Lungs Clear, Normal Breath Sounds Cardiovascular: Regular Rate, Rhythm GI/Abdominal Exam: Soft, Non-Tender Extremities: Normal Inspection, Normal Range of Motion Neurological: Alert, Oriented, No Motor/Sensory Deficits Skin Exam: Warm, Dry, Normal Color Course - Vital Signs Last Recorded V/S: Last Vital Signs Temp 99.0 F 05/18/20 17:42 Pulse 70 05/18/20 16:33 Resp 13 05/18/20 17:42 BP 130/87 05/18/20 17:42 Pulse Ox 95 05/18/20 17:42 - Orders/Labs/Meds Labs: Laboratory Tests 05/18/20 Range/Units 14:30 COVID-19 (ENID) Negative (NEGATIVE) Meds: Medications Discontinued Medications Generic Name Dose Route Start Last Admin Trade Name Earl PRN Reason Stop Dose Admin Fentanyl Confirm 05/18/20 16:13 Sublimaze Administered 05/18/20 16:14 Dose 100 mcg .ROUTE .STK-MED ONE Glucagon 1 mg 05/18/20 11:00 05/18/20 11:10 Glucagen IVPUSH 05/18/20 11:01 1 mg ONETIME ONE Administration Lidocaine HCl Confirm 05/18/20 16:14 Xylocaine-Mpf 1% Administered 05/18/20 16:15 Dose 4 mls @ as directed .ROUTE .STK-MED ONE Lorazepam 1 mg 05/18/20 11:00 05/18/20 11:10 Ativan IVPUSH 05/18/20 11:01 1 mg ONETIME ONE Administration Midazolam HCl Confirm 05/18/20 16:13 Versed 1 Mg/Ml Administered 05/18/20 16:14 Dose 2 mg .ROUTE .STK-MED ONE Ondansetron HCl Confirm 05/18/20 16:13 Zofran Administered 05/18/20 16:14 Dose 4 mg .ROUTE .STK-MED ONE Propofol Confirm 05/18/20 16:13 Diprivan 20 Ml Administered 05/18/20 16:14 Dose 200 mg .ROUTE .STK-MED ONE - Re-Assessments/Exams Free Text/Narrative Re-Assessment/Exam: 05/18/20 11:31 have given ativan and glucagon IV which so far has not worked, will have him try some coke. 05/18/20 13:30. He still feels obstructed. I did discuss this with Dr Bojorquez. She will come see him as soon as she is able to come over and do that. 15:00 Dr Bojorquez has been here to see patient and will be taking patient over to surgery to get that out. Departure - Departure Time of Disposition: 14:29 Disposition: Refer to Observation Condition: Fair Clinical Impression: Esophageal obstruction due to food impaction - Discharge Information Sepsis Event Note (ED) - Evaluation Sepsis Screening Result: No Definite Risk
--- NOTE | 2020-05-18 15:18 | PCM.HP.2 ---
H&P History of Present Illness - General Date of Service: 05/18/20 Source of Information: Patient, Provider History Limitations: Reports: No Limitations - History of Present Illness Initial Comments - Free Text/Narative: The patient is 30 y/o male who presents with dysphagia after eating steak last evening. He attempted to eat other foods to push this down, but it was not successful. He is currently having pressure and discomfort on the lower substernal/epigastric area. He has not been able to vomit this piece of food. In the emergency department he was treated with Ativan and glucagon. This was not successful in dislodging the food bolus. He reports having an episode of dysphasia approximately 1 time per month. This is been occurring in the last 5 to 6 years. He usually has difficulty with dysphagia occurring with eating meats, occasionally this happens when eating bread. Patient also reports having some changes in his bowel movements recently. He is now having twice daily bowel movements that are loose. In addition he is having persistent anal pain. He denies any hematochezia or melena. Throat Pain Score (Numeric/FACES): 8 - Related Data Allergies/Adverse Reactions: Allergies Allergy/AdvReac Type Severity Reaction Status Date / Time No Known Allergies Allergy Verified 05/18/20 10:02 Home Medications: Home Meds . [No Known Home Meds] 01/29/20 [History] Past Medical History - Past Health History Medical/Surgical History: Denies Medical/Surgical History Respiratory History: Reports: Asthma Musculoskeletal History: Reports: Fracture Neurological History: Reports: Concussion - Past Surgical History HEENT Surgical History: Reports: Oral Surgery Social & Family History - Family History Cardiac: Reports: OK - Tobacco Use Smoking Status *Q: Former Smoker Used Tobacco, but Quit: Yes Month/Year Tobacco Last Used: 11/2013 - Caffeine Use Caffeine Use: Reports: Coffee, Energy Drinks, Soda, Tea - Alcohol Use Days Per Week of Alcohol Use: 3 Number of Drinks Per Day: 3 Total Drinks Per Week: 9 - Recreational Drug Use Recreational Drug Use: No - Living Situation & Occupation Living situation: Reports: , with Spouse, with Family (3 kids) Occupation: Employed ([employer]) H&P Review of Systems - Review of Systems: Review Of Systems: See Below General: Reports: No Symptoms HEENT: Reports: No Symptoms Pulmonary: Reports: No Symptoms Cardiovascular: Reports: No Symptoms Gastrointestinal: Reports: Constipation, Difficulty Swallowing. Denies: Diarrhea, Hematochezia, Melena Genitourinary: Reports: No Symptoms Musculoskeletal: Reports: No Symptoms Skin: Reports: No Symptoms Neurological: Reports: Paresthesia (transient in hands and feet) Hematologic/Lymphatic: Reports: No Symptoms Exam - Exam Exam: See Below - Vital Signs Vital Signs: Last Vital Signs Temp 36.7 C 05/18/20 10:02 Pulse 85 05/18/20 10:02 Resp 18 05/18/20 10:02 BP 127/73 05/18/20 10:02 Pulse Ox 97 05/18/20 10:02 Weight: 95.254 kg - Exam Quality Assessment: No: Supplemental Oxygen General: Alert, Oriented HEENT: Conjunctiva Clear, EOMI Neck: Supple Lungs: Normal Respiratory Effort GI/Abdominal Exam: Soft, Tender (mild in epigastrium, ) Rectal (Males) Exam: Other (normal perianal skin, no fissure) Extremities: Normal Inspection, No Pedal Edema Peripheral Pulses: 2+: Dorsalis Pedis (L), Dorsalis Pedis (R) Skin: Warm, Dry, Rash (hyperpigmented plaques on lower back and chest) Neurological: Cranial Nerves Intact Neuro Extensive - Mental Status: Oriented x3, Normal Mood/Affect - Patient Data Lab Results Last 24 hrs: Laboratory Results - last 24 hr 05/18/20 Range/Units 14:30 COVID-19 (ENID) Negative (NEGATIVE) Sepsis Event Note - Evaluation Sepsis Screening Result: No Definite Risk - Focused Exam Vital Signs: Vital Signs Temp Pulse Resp BP Pulse Ox 05/18/20 10:02 36.7 C 85 18 127/73 97 Date Exam was Performed: 05/18/20 Time Exam was Performed: 15:51 *Q Meaningful Use (ADM) - VTE Risk Assess *Q Each Risk Factor Represents 1 Point: Obesity ( BMI > 25 kg/m2) Total Score 1 Point Risk Factors: 1 - Problem List (1) Esophageal obstruction due to food impaction SNOMED Code(s): 464585076 ICD Code: K22.2 - ESOPHAGEAL OBSTRUCTION; T18.128A - FOOD IN ESOPHAGUS CAUSING OTHER INJURY, INITIAL ENCOUNTER Status: Acute Current Visit: Yes Problem List Initiated/Reviewed/Updated: Yes Assessment/Plan Comment:: 30-year-old male with esophageal obstruction due to food bolus - plan for EGD with retrieval of the obstructing food/foreign body. Discussed risk of perforation, and his written consent was obtained - no abx needed - NPO with IVF resuscitation Plan to discharge home after the procedure. Sherri Saha MD General surgery - Mortality Measure Prognosis:: Good
--- NOTE | 2020-05-18 16:05 | PCM.PREANE ---
Preanesthetic Assessment - Procedure Proposed Procedure: EGD removal of food bolus - Anesthesia/Transfusion/Family Hx Anesthesia History: Prior Anesthesia Without Reaction Family History of Anesthesia Reaction: No Transfusion History: No Prior Transfusion(s) - Review of Systems General: Fatigue, Malaise Pulmonary: Sputum Cardiovascular: No Symptoms Gastrointestinal: Abdominal Pain (upper chest), Nausea Neurological: Numbness (right hand) Other: Reports: Throat Pain, Neck Pain, Anxiety - Physical Assessment NPO Status Date: 05/17/20 NPO Status Time: 20:00 Vital Signs: Last Vital Signs Temp 36.7 C 05/18/20 10:02 Pulse 85 05/18/20 10:02 Resp 18 05/18/20 10:02 BP 127/73 05/18/20 10:02 Pulse Ox 97 05/18/20 10:02 Height: 1.83 m Weight: 95.254 kg ASA Class: 2 Mental Status: Alert & Oriented x3 Airway Class: Mallampati = 1 Dentition: Reports: Normal Dentition Thyro-Mental Finger Breadths: 3 Mouth Opening Finger Breadths: 3 ROM/Head Extension: Full Lungs: Clear to Auscultation, Normal Respiratory Effort Cardiovascular: Regular Rate, Regular Rhythm - Lab Values: Laboratory Last Values COVID-19 (ENID) Negative (NEGATIVE) 05/18/20 14:30 - Allergies Allergies/Adverse Reactions: Allergies Allergy/AdvReac Type Severity Reaction Status Date / Time No Known Allergies Allergy Verified 05/18/20 10:02 - Blood Blood Available: No Product(s) Available: None - Anesthesia Plan Pre-Op Medication Ordered: None - Acknowledgements Anesthesia Type Planned: General Anesthesia Pt an Appropriate Candidate for the Planned Anesthesia: Yes Alternatives and Risks of Anesthesia Discussed w Pt/Guardian: Yes Pt/Guardian Understands and Agrees with Anesthesia Plan: Yes PreAnesthesia Questionnaire - Past Health History Medical/Surgical History: Denies Medical/Surgical History Respiratory History: Reports: Asthma Gastrointestinal History: Reports: GERD Musculoskeletal History: Reports: Fracture Neurological History: Reports: Concussion - Past Surgical History HEENT Surgical History: Reports: Oral Surgery - SUBSTANCE USE Smoking Status *Q: Former Smoker Tobacco Use Within Last Twelve Months: No Second Hand Smoke Exposure: No Days Per Week of Alcohol Use: 3 Number of Drinks Per Day: 3 Total Drinks Per Week: 9 Recreational Drug Use History: No - HOME MEDS Home Medications: Home Meds . [No Known Home Meds] 01/29/20 [History] - CURRENT (IN HOUSE) MEDS Current Meds: Current Medications Discontinued Medications Glucagon (Glucagen) 1 mg IVPUSH ONETIME ONE Stop: 05/18/20 11:01 Last Admin: 05/18/20 11:10 Dose: 1 mg Documented by: Lorazepam (Ativan) 1 mg IVPUSH ONETIME ONE Stop: 05/18/20 11:01 Last Admin: 05/18/20 11:10 Dose: 1 mg Documented by:
[2020-05-18] MEDS ORDERED: Propofol 200 MG/20 ML SDV ONE (16:13)
[2020-05-18] MEDS ORDERED: Ondansetron 4 MG/2 ML SDV ONE (16:13)
[2020-05-18] MEDS ORDERED: Midazolam 1 MG/ML 2 ML SDV ONE (16:13)
[2020-05-18] MEDS ORDERED: fentaNYL 100 MCG/2 ML SDV ONE (16:13)
[2020-05-18] MEDS ORDERED: Succinylcholine/Sod PF 100 MG/5 ML SYRINGE IV ONE (16:14)
[2020-05-18] MEDS ORDERED: Lidocaine 1% 4 ML ONE (16:14)
[2020-05-18 16:35] VITALS: PULSE 70
--- NOTE | 2020-05-18 16:52 | PCM.OPNOTE ---
- General Post-Op/Procedure Note Date of Surgery/Procedure: 05/18/20 Operative Procedure(s): EGD Findings: 1. No foreign body/food obstruction 2. Esophagitis 3. Gastritis Pre Op Diagnosis: Esophageal food obstruction Post-Op Diagnosis: Esophagitis and Gastritis Anesthesia Technique: General ET Tube Primary Surgeon: Sherri Saha Anesthesia Provider: Nicholas Springer Pathology: Gastric antrum biopsy Fluid Replacement, Intraop: 200 Output, Urine Amount: 0 EBL in mLs: 0 Complications: none apparent Condition: Good
--- NOTE | 2020-05-18 16:55 | PCM.POSTAN ---
POST ANESTHESIA ASSESSMENT - MENTAL STATUS Mental Status: Alert, Oriented - VITAL SIGNS Vital Signs: Last Vital Signs Temp 36.7 C 05/18/20 16:33 Pulse 70 05/18/20 16:33 Resp 18 05/18/20 10:02 BP 130/80 05/18/20 16:33 Pulse Ox 100 05/18/20 16:33 - RESPIRATORY Respiratory Status: Respiratory Rate WNL, Airway Patent, O2 Saturation Stable - CARDIOVASCULAR CV Status: Pulse Rate WNL, Blood Pressure Stable - GASTROINTESTINAL GI Status: No Symptoms - PAIN Pain Score: 0 - POST OP HYDRATION Hydration Status: Adequate & Stable - OBSERVATIONS Free Text/Narrative:: no anesthesia complications noted
--- NOTE | 2020-05-18 16:56 | PCM.PRNOTE ---
- Free Text/Narrative Note: Operative Report Date of procedure: May 18, 2020 Preoperative diagnosis: Esophageal food obstruction Postoperative diagnosis: Esophagitis and gastritis Surgeon: Sherri Saha M.D. Procedure: EGD Anesthesia: General ET Flotation Tender Helper: Nicholas Springer CRNA IV fluids: 200 mL Estimated blood loss: 0 mL Specimens: Gastric antral biopsy. Indication: The patient is a 30 -year-old gentleman who presented with symptoms of an esophageal food obstruction. The patient's main complaint was dysphagia and pressure with discomfort at the substernal area. The patient was consented for an EGD with intervention. Risk of perforation was discussed. The patient's consent was obtained Description of the procedure: The patient was taken to the endoscopy suite and placed on hemodynamic monitoring. The nurse poultry inseminator induced general anesthesia with successful intubation. A bite block was placed. A timeout was performed. The endoscope was gently placed into the mouth to the back of the pharynx and introduced into the esophagus. The scope was gently advanced under direct visualization down to the level of the lower esophageal sphincter. There was no foreign body noted the stomach was then entered. Normal rugal folds were noted. The scope was advanced into the antrum. We noted erythema with some mild friability of the mucosa and adherent blood. The remaining mucosa was pale. The pylorus was then entered and the first and second portion of the duodenum was inspected. There were no ulcerations in the duodenum. The scope was withdrawn back to the antrum. Biopsies were taken of the antral mucosa using a cold biopsy forceps. The scope was then retroflexed in the cardia and fundus were investigated. There is no evidence of any hiatal hernia. There was some evidence of erythema and edema of the cardia of the stomach near the GE junction. No other abnormalities were noted. The scope was then withdrawn while inspecting the esophagus. There was erythema of the tissue at the lower esophageal sphincter consistent with esophagitis. The procedure was terminated. the patient tolerated the procedure well without any evidence of complications. He was extubated and transported to PACU in stable condition. Sherri Saha MD General Surgery
--- NOTE | 2020-05-18 17:09 | PCM48HPAN ---
Post Anesthesia Note - EVALUATION WITHIN 48HRS OF ANESTHETIC Vital Signs in Normal Range: Yes Patient Participated in Evaluation: Yes Respiratory Function Stable: Yes Airway Patent: Yes Cardiovascular Function Stable: Yes Hydration Status Stable: Yes Pain Control Satisfactory: Yes Nausea and Vomiting Control Satisfactory: Yes Mental Status Recovered: Yes Vital Signs: Last Vital Signs Temp 37.8 C 05/18/20 17:00 Pulse 70 05/18/20 16:33 Resp 13 05/18/20 17:00 BP 132/88 05/18/20 17:00 Pulse Ox 94 L 05/18/20 17:00 - COMMENTS/OBSERVATIONS Free Text/Narrative:: no anesthesia complications noted
[2020-05-18 17:42] VITALS: BP 130/87
== END 2020-05-18 17:59 | disposition home or self-care (01) ==
LOC: JD.ED 09:54 → JD.SDS 15:45
PROVIDERS: ATTEND Surgery
DX: K29.70 Gastritis, unspecified, without bleeding (principal); K21.0 Gastro-esophageal reflux disease with esophagitis; J45.909 Unspecified asthma, uncomplicated; Z11.59 Encounter for screening for other viral diseases; Z87.891 Personal history of nicotine dependence
CPT/HCPCS: 43239; 87635; 96374; 96375; 99284; J0330; J1610; J2001; J2060; J2250; J2405; J2704; J3010; 00731; U0002

== ENCOUNTER 2022-06-23 09:51 | Emergency (ER) | payer OTHER ==
[2022-06-23] MEDS ORDERED: Ciprofloxacin 0.3% Ophth Soln 5 ML Bottle EYERT ONE (10:24)
[2022-06-23 10:25] VITALS: BP 130/92; PULSE 60
== END 2022-06-23 10:41 | disposition home or self-care (01) ==
LOC: JD.ED 09:51
DX: S05.01XA Injury of conjunctiva and corneal abrasion without foreign body, right eye, initial encounter (principal); W25.XXXA Contact with sharp glass, initial encounter
CPT/HCPCS: 99283; A9270; 99282

== ENCOUNTER 2023-01-29 02:48 | Emergency (ER) | payer OTHER ==
[2023-01-29 03:15] VITALS: BP 120/71; PULSE 70
== END 2023-01-29 04:51 | disposition home or self-care (01) ==
LOC: JD.ED 02:48
DX: N41.9 Inflammatory disease of prostate, unspecified (principal); E03.9 Hypothyroidism, unspecified; Z86.16 Personal history of COVID-19
CPT/HCPCS: 36415; 80053; 83735; 84443; 85025; 86140; 99283; 99284